=== PATIENT | male | born 1955 | race Caucasian/White ===

== ENCOUNTER 2024-07-13 07:46 | Day surgery (SDC) | payer MEDICARE ==
[2024-07-13] MEDS ORDERED: Sodium Chloride 0.9(Preservative Free) 10 ML IJ ONE (07:47)
[2024-07-13] MEDS ORDERED: methylPREDNISolone acetate IM ONE (07:47)
[2024-07-13] MEDS ORDERED: LIDOCAINE HCL 1% AMPUL 5 ML IJ ONE (07:47)
[2024-07-13] MEDS ORDERED: propofoL IV ONE (10:24)
[2024-07-13] MEDS ORDERED: Lactated Ringers 1,000 ML IV ONE (10:28)
--- NOTE | 2024-07-13 11:50 | XRAY ---
Indication: Lumbar ANALI. Intraoperative fluoroscopy provided for 31 seconds. 4 digital spot image submitted for interpretation demonstrates posterior needle tip projecting posterior to last lumbar segment. Small amount of contrast injected for needle tip placement. Correlate with intraoperative findings/report. Incidental incompletely visualized left innominate orthopedic hardware.
--- NOTE | 2024-07-13 12:22 | XRAY ---
31 seconds of fluoroscopy was used in surgery for a lumbar ANALI.
== END 2024-07-13 10:55 | disposition home or self-care (01) ==
LOC: SDC-PAIN 07:46
PROVIDERS: ATTEND Psychiatry & Neurology Pain Medicine
DX: M54.16 Radiculopathy, lumbar region (principal); E11.9 Type 2 diabetes mellitus without complications
CPT/HCPCS: 62323; 72100; 82947; J1010; J2704; Q9966